=== PATIENT | male | born 1950 | race Asian ===

== ENCOUNTER 2024-03-31 12:14 | Inpatient (IN) | payer OTHER ==
[~2024-03-31] VITALS: Ht 162.6 cm; Wt 72.6 kg
[2024-03-31] MEDS ORDERED: DILTIAZEM HCL 25 MG IV ONE (13:07)
[2024-03-31] MEDS: IV NS 0.9% 1,000 ML BAG IV ONE (13:16)
[2024-03-31] MEDS: DILTIAZEM HCL 50 MG IV IV ONE (13:18)
[2024-03-31 13:32] LABS: BASOPHILS % (AUTO) 0.2 % (0.0-2.0); HEMATOCRIT 41 % (39-51); HEMOGLOBIN 13.6 g/dL (13.5-17.5); LYMPHOCYTES # (AUTO) 0.3 K/uL (0.8-4.8); MEAN CORPUSCULAR HGB CONC 33 g/dl (31.0-36.0); MONOCYTES # (AUTO) 0.4 K/uL (0.1-1.30); NEUTROPHILS # (AUTO) 4.1 K/uL (1.8-8.9); PLATELET COUNT (AUTO) 96 K/uL (150-450); WHITE BLOOD COUNT (AUTO) 4.8 K/uL (4.3-11.0)
[2024-03-31 13:37] LABS: EOSINOPHILS % (AUTO) 0.5 % (0.0-6.0); LYMPHOCYTES % (AUTO) 6.7 % (20.0-44.0); MEAN CORPUSCULAR HEMOGLOBIN 27 PG (26.0-33.0); MEAN CORPUSCULAR VOLUME 83 fL (80-96); MONOCYTES % (AUTO) 8.1 % (2.0-12.0); NEUTROPHILS % (AUTO) 84.5 % (43.0-81.0); RED BLOOD CELL COUNT(AUTO) 4.97 MIL/uL (4.5-6.0); RED CELL DISTRIBUTION WIDTH 15.2 % (11.5-15.0)
[2024-03-31 13:44] LABS: INR 1.16 (0.91-1.10); PARTIAL THROMBOPLASTIN TIME 39.3 SEC (24.3-34.3); PROTHROMBIN TIME 11.8 SECS (9.2-11.1)
[2024-03-31 13:46] LABS: ALANINE AMINOTRANSFERASE 150 U/L (12-78); ALBUMIN 2.7 g/dL (3.4-5.0); ALKALINE PHOSPHATASE 179 U/L (46-116); ASPARTATE AMINOTRANSFERASE 76 U/L (15-37); BILIRUBIN,DIRECT 3.6 mg/dL (0.0-0.2); BILIRUBIN,TOTAL 4.6 mg/dL (0.2-1.0); CALCIUM, SERUM 8.6 mg/dL (8.5-10.1); CARBON DIOXIDE 24 mmol/L (21-32); CHLORIDE 98 mmol/L (98-107); CREATININE 1.5 mg/dL (0.6-1.3); GLUCOSE 148 mg/dL (74-106); SODIUM SERUM 131 mmol/L (136-145); TOTAL PROTEIN, SERUM 7.4 g/dL (6.4-8.2); UREA NITROGEN, BLOOD 27 mg/dL (7-18)
[2024-03-31 13:47] LABS: APPEARANCE,URINE Slightly Cloudy (CLEAR); BILIRUBIN,URINE MODERATE (NEGATIVE); BLOOD, URINE Moderate Ery/uL (NEGATIVE); COLOR,URINE YELLOW (YELLOW); KETONES,URINE 40 mg/dL (NEGATIVE); LEUKOCYTE ESTERASE ,URINE Negative (NEGATIVE); NITRITE, URINE Negative (NEGATIVE); PROTEIN,URINE 100 mg/dl (NEGATIVE); UGLUCOSE >=1000 mg/dL (NEGATIVE); UROBILINOGEN,URINE 0.2 EU/dL (0.2)
[2024-03-31 13:49] LABS: LACTIC ACID 3.7 mmol/L (0.4-2.0)
[2024-03-31] MEDS: PIPERACILLIN /TAZOBACTAM 3.375 G in IV D5W 50 ML IV ONE (14:10)
[2024-03-31 14:12] LABS: ADD URINE CULTURE NO; BACTERIA,URINE Few /HPF (None Seen); COARSE GRANULAR CASTS,URINE Few /LPF (None Seen); SQUAMOUS EPITHELIAL CELL,UR Few /HPF (None Seen); URINE AMORPHOUS URATE Few /HPF (None Seen); WBC,URINE 0-2 /HPF (0-3)
[2024-03-31 14:13] LABS: FINE GRANULAR CASTS,URINE Few /LPF (None Seen)
[2024-03-31 16:23] LABS: BAND % (MANUAL) 3 % (0.0-5.0); LYMPHOCYTES % (MANUAL) 8 % (16-48); MONOCYTES % (MANUAL) 10 % (0-11.0); NEUTROPHILS % (MANUAL) 79 (42-76); PLATELET ESTIMATE DECREASED
[2024-03-31] MEDS: IV NS 0.9% 500 ML BAG IV ONE (16:32)
[2024-03-31] MEDS: DILTIAZEM HCL 25 MG IV IV ONE (17:15)
[2024-03-31] MEDS ORDERED: MAGNESIUM HYDROXIDE 30 ML UDC PO PRN (18:00)
[2024-03-31] MEDS ORDERED: ONDANSETRON HCL/PF 4 MG/2 ML VIAL IVP PRN (18:00)
[2024-03-31] MEDS ORDERED: MORPHINE SULFATE INJ 2 MG/ML DISP.SYRIN IV PRN (18:00)
[2024-03-31] MEDS ORDERED: MAG HYDROX/AL HYDROX/SIMETH 30 ML UDC PO PRN (18:00)
[2024-03-31] MEDS ORDERED: Z GUARD REMEDY 4 OZ OINT TP PRN (18:00)
[2024-03-31] MEDS: ACETAMINOPHEN 325 MG TABLET PO PRN (18:31)
[2024-03-31] MEDS: IV NS 0.9% 1,000 ML IV PRN (18:50)
[2024-03-31] MEDS ORDERED: ZOSYN IVPB 2.25 G in IV D5W 50ml IV SCH (20:00)
[2024-03-31] MEDS: DILTIAZEM HCL 25 MG IV IV PRN (23:35)
[2024-03-31] MEDS: ZOSYN IVPB 2.25 G in IV D5W 50ml IV SCH (23:40)
[2024-04-01] VITALS: BP 99/70; TEMP 98.4; O2SAT 97
[2024-04-01 04:00] VITALS: BP 137/88; TEMP 98.1; O2SAT 96
[2024-04-01 08:00] VITALS: BP 118/99; TEMP 98.4; O2SAT 100
[2024-04-01 09:28] LABS: BASOPHILS % (AUTO) 0.1 % (0.0-2.0); EOSINOPHILS % (AUTO) 0.3 % (0.0-6.0); HEMATOCRIT 38 % (39-51); HEMOGLOBIN 12.9 g/dL (13.5-17.5); LYMPHOCYTES # (AUTO) 0.4 K/uL (0.8-4.8); LYMPHOCYTES % (AUTO) 9.6 % (20.0-44.0); MEAN CORPUSCULAR HEMOGLOBIN 28 PG (26.0-33.0); MEAN CORPUSCULAR HGB CONC 34 g/dl (31.0-36.0); MEAN CORPUSCULAR VOLUME 83 fL (80-96); MONOCYTES # (AUTO) 0.4 K/uL (0.1-1.30); MONOCYTES % (AUTO) 11.5 % (2.0-12.0); NEUTROPHILS # (AUTO) 2.9 K/uL (1.8-8.9); NEUTROPHILS % (AUTO) 78.5 % (43.0-81.0); PLATELET COUNT (AUTO) 76 K/uL (150-450); RED BLOOD CELL COUNT(AUTO) 4.63 MIL/uL (4.5-6.0); RED CELL DISTRIBUTION WIDTH 15.5 % (11.5-15.0); WHITE BLOOD COUNT (AUTO) 3.7 K/uL (4.3-11.0)
[2024-04-01 10:00] LABS: BILIRUBIN,DIRECT 1.9 mg/dL (0.0-0.2); BILIRUBIN,TOTAL 2.5 mg/dL (0.2-1.0); CREATININE 0.9 mg/dL (0.6-1.3); MAGNESIUM 2.2 mg/dL (1.8-2.4); PHOSPHORUS 2.3 mg/dL (2.5-4.9); POTASSIUM 3.3 mmol/L (3.5-5.1); TOTAL PROTEIN, SERUM 6.3 g/dL (6.4-8.2)
[2024-04-01 12:00] VITALS: BP 127/67; TEMP 98.4; O2SAT 95
[2024-04-01 12:16] LABS: BAND % (MANUAL) 2 % (0.0-5.0); LYMPHOCYTES % (MANUAL) 9 % (16-48); MONOCYTES % (MANUAL) 11 % (0-11.0); NEUTROPHILS % (MANUAL) 78 (42-76); PLATELET ESTIMATE DECREASED
[2024-04-01 12:17] LABS: ANISOCYTOSIS 1+; TEAR DROP CELLS OCC
[2024-04-01] MEDS ORDERED: EMPA10TA PO (12:32)
[2024-04-01] MEDS ORDERED: RIVA10TA PO (12:32)
[2024-04-01] MEDS ORDERED: FLEC50TA2 PO (12:32)
[2024-04-01] MEDS ORDERED: LATA7.5D EACHEYE (12:32)
[2024-04-01] MEDS ORDERED: ATOR40TA PO (12:32)
[2024-04-01] MEDS ORDERED: METO50TA16 PO (12:32)
[2024-04-01] MEDS: POTASSIUM CHLORIDE 20 MEQ TAB.PRT.SR PO ONE (12:36)
[2024-04-01 12:55] LABS: APPEARANCE,URINE CLEAR (CLEAR); BILIRUBIN,URINE 1+ (NEGATIVE); BLOOD, URINE 1+ Ery/uL (NEGATIVE); COLOR,URINE YELLOW (YELLOW); KETONES,URINE 2+ mg/dL (NEGATIVE); LEUKOCYTE ESTERASE ,URINE NEGATIVE (NEGATIVE); NITRITE, URINE NEGATIVE (NEGATIVE); PH,URINE 5.5 (5.0-8.0); PROTEIN,URINE 1+ mg/dl (NEGATIVE); UGLUCOSE 3+ mg/dL (NEGATIVE); UROBILINOGEN,URINE 0.2 EU/dL (0.2)
[2024-04-01 13:04] LABS: CREATININE, URINE 48.3 MG/DL (30.0-125.0); URINE TOTAL PROTEIN 61.7 mg/dL (0-11.9)
[2024-04-01 13:06] LABS: ADD URINE CULTURE NO; BACTERIA,URINE Rare /HPF (None Seen); RBC,URINE 0-3 /HPF (0-2); SQUAMOUS EPITHELIAL CELL,UR Rare /HPF (None Seen); WBC,URINE 0-2 /HPF (0-3)
[2024-04-01 13:49] LABS: EOSINOPHIL,URINE None Seen
[2024-04-01] MEDS ORDERED: METOPROLOL TARTRATE 50 MG TABLET PO SCH (14:00)
[2024-04-01] MEDS: RIVAROXABAN 10 MG TABLET PO SCH (14:31)
[2024-04-01] MEDS: METOPROLOL TARTRATE 50 MG TABLET PO SCH (14:33)
[2024-04-01] MEDS: ATORVASTATIN 40 MG TABLET PO SCH (14:51)
[2024-04-01] MEDS ORDERED: DIGOXIN INJ 0.5 MG/2 ML AMPUL IV ONE (15:00)
[2024-04-01 16:00] VITALS: BP 123/79; TEMP 97.9; O2SAT 96
[2024-04-01] MEDS ORDERED: DEXTROSE 50%-WATER 50 ML DISP.SYRIN IV PRN (16:00)
[2024-04-01] MEDS: K PHOS NEUTRAL 250 MG TABLET PO ONE (16:03)
[2024-04-01] MEDS: BLOOD SUGAR DIAGNOSTIC 1 EACH STRIP IN SCH (16:31)
[2024-04-01] MEDS ORDERED: FLECAINIDE ACETATE (100 MG) 100 MG TABLET PO SCH (17:00)
[2024-04-01] MEDS: INSULIN REGULAR, HUMAN 100 UNIT/ML 3 ML VIAL SQ PRN (17:20)
[2024-04-01 19:52] LABS: THYROID STIMULATING HORMONE 0.517 uIU/mL (0.358-3.74)
[2024-04-01 20:00] VITALS: BP 106/84; TEMP 98.2; O2SAT 97
[2024-04-01] MEDS: LATANOPROST EYE DROP 0.005% 2.5 ML BOTTLE EACHEYE SCH (21:19)
[2024-04-02] VITALS: BP 112/78; TEMP 97.9; O2SAT 96
[2024-04-02 04:00] VITALS: BP 106/86; TEMP 98; O2SAT 95
[2024-04-02 07:16] LABS: BASOPHILS % (AUTO) 0.2 % (0.0-2.0); EOSINOPHILS % (AUTO) 0.9 % (0.0-6.0); HEMATOCRIT 39 % (39-51); LYMPHOCYTES # (AUTO) 0.9 K/uL (0.8-4.8); LYMPHOCYTES % (AUTO) 21.2 % (20.0-44.0); MEAN CORPUSCULAR HEMOGLOBIN 28 PG (26.0-33.0); MEAN CORPUSCULAR HGB CONC 34 g/dl (31.0-36.0); MEAN CORPUSCULAR VOLUME 82 fL (80-96); MONOCYTES # (AUTO) 0.7 K/uL (0.1-1.30); MONOCYTES % (AUTO) 17.1 % (2.0-12.0); NEUTROPHILS # (AUTO) 2.4 K/uL (1.8-8.9); NEUTROPHILS % (AUTO) 60.6 % (43.0-81.0); PLATELET COUNT (AUTO) 84 K/uL (150-450); RED BLOOD CELL COUNT(AUTO) 4.72 MIL/uL (4.5-6.0); RED CELL DISTRIBUTION WIDTH 15.5 % (11.5-15.0)
[2024-04-02 08:00] VITALS: BP 113/82; TEMP 98.2; O2SAT 96
[2024-04-02] MEDS: HOME MED MISC JARDIANCE 10MG PO SCH (08:15)
[2024-04-02] MEDS: METOPROLOL TARTRATE 50 MG TABLET PO SCH (08:15)
[2024-04-02 08:41] LABS: BILIRUBIN,DIRECT 1.1 mg/dL (0.0-0.2); BILIRUBIN,TOTAL 1.6 mg/dL (0.2-1.0); CALCIUM, SERUM 8.3 mg/dL (8.5-10.1); CREATININE 0.9 mg/dL (0.6-1.3); PHOSPHORUS 2.4 mg/dL (2.5-4.9); POTASSIUM 3.2 mmol/L (3.5-5.1); TOTAL PROTEIN, SERUM 6.1 g/dL (6.4-8.2)
[2024-04-02 09:39] LABS: THYROID STIMULATING HORMONE 1.359 uIU/mL (0.358-3.74)
[2024-04-02 10:36] LABS: ANISOCYTOSIS 1+; BAND % (MANUAL) 4 % (0.0-5.0); EOSINOPHILS % (MANUAL) 1 % (0-4); HYPOCHROMASIA 1+; LYMPHOCYTES % (MANUAL) 20 % (16-48); MONOCYTES % (MANUAL) 18 % (0-11.0); NEUTROPHILS % (MANUAL) 57 (42-76); PLATELET ESTIMATE DECREASED; TEAR DROP CELLS 1+
[2024-04-02] MEDS: POTASSIUM CL. PREMIX PERIPHER. 50 ML IV SCH (11:00)
[2024-04-02] MEDS: ZOSYN IVPB 3.375 G in IV D5W 50ml IV SCH (11:09)
[2024-04-02 11:41] LABS: URIC ACID 2.1 mg/dL (2.6-7.2)
[2024-04-02 12:00] VITALS: BP 124/87; TEMP 97.7
[2024-04-02 16:00] VITALS: BP 114/83; TEMP 98.1
[2024-04-02] MEDS: K PHOS NEUTRAL 250 MG TABLET PO ONE (16:16)
[2024-04-02] MEDS: POTASSIUM CHLORIDE 10 MEQ TABLET.SA PO ONE (16:17)
[2024-04-02 20:00] VITALS: BP 110/78; TEMP 97.7; O2SAT 98
[2024-04-03] VITALS: BP 94/67; TEMP 97.3; O2SAT 98
[2024-04-03 04:00] VITALS: BP 111/77; TEMP 98; O2SAT 98
[2024-04-03 06:40] LABS: BASOPHILS % (AUTO) 0.3 % (0.0-2.0); EOSINOPHILS # (AUTO) 0.1 K/uL (0.0-0.7); HEMATOCRIT 41 % (39-51); HEMOGLOBIN 13.8 g/dL (13.5-17.5); LYMPHOCYTES # (AUTO) 1.9 K/uL (0.8-4.8); LYMPHOCYTES % (AUTO) 27.9 % (20.0-44.0); MEAN CORPUSCULAR HEMOGLOBIN 28 PG (26.0-33.0); MEAN CORPUSCULAR HGB CONC 34 g/dl (31.0-36.0); MEAN CORPUSCULAR VOLUME 83 fL (80-96); MONOCYTES # (AUTO) 0.9 K/uL (0.1-1.30); MONOCYTES % (AUTO) 13.4 % (2.0-12.0); NEUTROPHILS # (AUTO) 3.8 K/uL (1.8-8.9); NEUTROPHILS % (AUTO) 56.4 % (43.0-81.0); PLATELET COUNT (AUTO) 134 K/uL (150-450); RED BLOOD CELL COUNT(AUTO) 4.92 MIL/uL (4.5-6.0); RED CELL DISTRIBUTION WIDTH 15.5 % (11.5-15.0); WHITE BLOOD COUNT (AUTO) 6.8 K/uL (4.3-11.0)
[2024-04-03 06:57] LABS: BILIRUBIN,DIRECT 0.9 mg/dL (0.0-0.2); BILIRUBIN,TOTAL 1.3 mg/dL (0.2-1.0); CALCIUM, SERUM 8.4 mg/dL (8.5-10.1); CREATININE 0.9 mg/dL (0.6-1.3); PHOSPHORUS 3.2 mg/dL (2.5-4.9); POTASSIUM 3.4 mmol/L (3.5-5.1); TOTAL PROTEIN, SERUM 6.7 g/dL (6.4-8.2)
[2024-04-03 08:00] VITALS: BP 116/72; TEMP 97.5; O2SAT 98
[2024-04-03] MEDS: POTASSIUM CHLORIDE 20 MEQ TAB.PRT.SR PO SCH (11:45)
[2024-04-03 12:00] VITALS: BP 116/72; TEMP 97.9; O2SAT 98
[2024-04-03 16:00] VITALS: BP 120/81; TEMP 97.5; O2SAT 98
[2024-04-03 20:00] VITALS: BP 105/78; TEMP 97.5; O2SAT 98
[2024-04-04] VITALS: BP 99/67; TEMP 97.9; O2SAT 99
[2024-04-04 01:06] LABS: PTH, INTACT 28 pg/mL (15-65)
[2024-04-04 03:09] LABS: HBSAG SCREEN Negative (Negative); HEPATITIS A AB, IgM Negative (Negative); HEPATITIS B CORE AB, IgM Negative (Negative)
[2024-04-04 04:00] VITALS: BP 99/48; TEMP 97.9; O2SAT 98
[2024-04-04 06:41] LABS: BASOPHILS % (AUTO) 0.5 % (0.0-2.0); EOSINOPHILS # (AUTO) 0.1 K/uL (0.0-0.7); EOSINOPHILS % (AUTO) 1.6 % (0.0-6.0); HEMATOCRIT 32 % (39-51); HEMOGLOBIN 10.9 g/dL (13.5-17.5); LYMPHOCYTES # (AUTO) 2.4 K/uL (0.8-4.8); LYMPHOCYTES % (AUTO) 29.9 % (20.0-44.0); MEAN CORPUSCULAR HEMOGLOBIN 28 PG (26.0-33.0); MEAN CORPUSCULAR HGB CONC 34 g/dl (31.0-36.0); MEAN CORPUSCULAR VOLUME 82 fL (80-96); MONOCYTES # (AUTO) 1.1 K/uL (0.1-1.30); MONOCYTES % (AUTO) 12.8 % (2.0-12.0); NEUTROPHILS # (AUTO) 4.5 K/uL (1.8-8.9); NEUTROPHILS % (AUTO) 55.2 % (43.0-81.0); PLATELET COUNT (AUTO) 173 K/uL (150-450); RED BLOOD CELL COUNT(AUTO) 3.91 MIL/uL (4.5-6.0); RED CELL DISTRIBUTION WIDTH 14.9 % (11.5-15.0); WHITE BLOOD COUNT (AUTO) 8.2 K/uL (4.3-11.0)
[2024-04-04 07:09] LABS: ALBUMIN 1.9 g/dL (3.4-5.0); BILIRUBIN,DIRECT 0.7 mg/dL (0.0-0.2); BILIRUBIN,TOTAL 1.1 mg/dL (0.2-1.0); CALCIUM, SERUM 8.2 mg/dL (8.5-10.1); CREATININE 0.7 mg/dL (0.6-1.3); POTASSIUM 3.7 mmol/L (3.5-5.1); TOTAL PROTEIN, SERUM 5.8 g/dL (6.4-8.2)
[2024-04-04 08:49] VITALS: BP 113/75; TEMP 97.6; O2SAT 99
[2024-04-04] MEDS ORDERED: APIXABAN 5 MG TABLET PO SCH (09:30)
[2024-04-04 12:00] VITALS: BP 100/73; TEMP 97.8; O2SAT 99
[2024-04-04 12:08] LABS: *SPE A/G RATIO 0.8 (0.7-1.7); *SPE ALBUMIN 2.4 g/dL (2.9-4.4); *SPE ALPHA-1-GLOBULIN 0.4 g/dL (0.0-0.4); *SPE ALPHA-2-GLOBULIN 0.9 g/dL (0.4-1.0); *SPE BETA GLOBULIN 0.7 g/dL (0.7-1.3); *SPE GLOBULIN, TOTAL 2.9 g/dL (2.2-3.9); *SPE M-SPIKE Not Observed g/dL (Not Observed); *SPE PROTEIN TOTAL 5.3 g/dL (6.0-8.5); *SPEGAMMA GLOBULIN 0.9 g/dL (0.4-1.8)
[2024-04-04 16:00] VITALS: BP 93/63; TEMP 98; O2SAT 100
[2024-04-04 20:00] VITALS: BP 101/74; TEMP 97.9; O2SAT 99
[2024-04-05] VITALS: BP 94/68; TEMP 97.9; O2SAT 99
[2024-04-05 04:00] VITALS: BP 107/94; TEMP 97.7; O2SAT 100
[2024-04-05 06:24] LABS: BASOPHILS % (AUTO) 0.3 % (0.0-2.0); EOSINOPHILS # (AUTO) 0.2 K/uL (0.0-0.7); EOSINOPHILS % (AUTO) 1.5 % (0.0-6.0); HEMATOCRIT 28 % (39-51); HEMOGLOBIN 9.5 g/dL (13.5-17.5); LYMPHOCYTES # (AUTO) 3.2 K/uL (0.8-4.8); LYMPHOCYTES % (AUTO) 30.5 % (20.0-44.0); MEAN CORPUSCULAR HEMOGLOBIN 28 PG (26.0-33.0); MEAN CORPUSCULAR HGB CONC 34 g/dl (31.0-36.0); MEAN CORPUSCULAR VOLUME 83 fL (80-96); MONOCYTES # (AUTO) 0.9 K/uL (0.1-1.30); MONOCYTES % (AUTO) 8.3 % (2.0-12.0); NEUTROPHILS # (AUTO) 6.2 K/uL (1.8-8.9); NEUTROPHILS % (AUTO) 59.4 % (43.0-81.0); PLATELET COUNT (AUTO) 235 K/uL (150-450); RED BLOOD CELL COUNT(AUTO) 3.41 MIL/uL (4.5-6.0); RED CELL DISTRIBUTION WIDTH 15.5 % (11.5-15.0); WHITE BLOOD COUNT (AUTO) 10.4 K/uL (4.3-11.0)
[2024-04-05 06:43] LABS: CALCIUM, SERUM 8.1 mg/dL (8.5-10.1); CREATININE 0.8 mg/dL (0.6-1.3); MAGNESIUM 2.2 mg/dL (1.8-2.4); PHOSPHORUS 3.2 mg/dL (2.5-4.9); POTASSIUM 3.9 mmol/L (3.5-5.1)
[2024-04-05 08:00] VITALS: BP 102/64; TEMP 98.2; O2SAT 99
[2024-04-05] MEDS: METOPROLOL TARTRATE 50 MG TABLET PO ONE (08:57)
[2024-04-05 12:00] VITALS: BP 95/60; TEMP 98; O2SAT 100
[2024-04-05] MEDS: DIGOXIN INJ 0.5 MG/2 ML AMPUL IV SCH (12:30)
[2024-04-05 16:00] VITALS: BP 102/66; TEMP 98.2; O2SAT 100
[2024-04-05] MEDS: METOPROLOL TARTRATE 50 MG TABLET PO SCH (16:34)
[2024-04-05 20:00] VITALS: BP 101/66; TEMP 98.2; O2SAT 97
[2024-04-06] VITALS: BP 97/65; TEMP 97.7; O2SAT 100
[2024-04-06 04:00] VITALS: BP 104/67; TEMP 97.5; O2SAT 99
[2024-04-06 06:59] LABS: BASOPHILS % (AUTO) 0.4 % (0.0-2.0); EOSINOPHILS # (AUTO) 0.1 K/uL (0.0-0.7); EOSINOPHILS % (AUTO) 1.2 % (0.0-6.0); HEMATOCRIT 25 % (39-51); HEMOGLOBIN 8.4 g/dL (13.5-17.5); LYMPHOCYTES % (AUTO) 26.8 % (20.0-44.0); MEAN CORPUSCULAR HEMOGLOBIN 28 PG (26.0-33.0); MEAN CORPUSCULAR HGB CONC 33 g/dl (31.0-36.0); MEAN CORPUSCULAR VOLUME 84 fL (80-96); MONOCYTES # (AUTO) 0.7 K/uL (0.1-1.30); MONOCYTES % (AUTO) 6.3 % (2.0-12.0); NEUTROPHILS # (AUTO) 7.4 K/uL (1.8-8.9); NEUTROPHILS % (AUTO) 65.3 % (43.0-81.0); PLATELET COUNT (AUTO) 279 K/uL (150-450); RED BLOOD CELL COUNT(AUTO) 3.03 MIL/uL (4.5-6.0); WHITE BLOOD COUNT (AUTO) 11.3 K/uL (4.3-11.0)
[2024-04-06 07:42] LABS: ALANINE AMINOTRANSFERASE 61 U/L (12-78); ALKALINE PHOSPHATASE 103 U/L (46-116); ASPARTATE AMINOTRANSFERASE 42 U/L (15-37); BILIRUBIN,TOTAL 0.9 mg/dL (0.2-1.0); CALCIUM, SERUM 8.3 mg/dL (8.5-10.1); CARBON DIOXIDE 20 mmol/L (21-32); CHLORIDE 106 mmol/L (98-107); CREATININE 0.9 mg/dL (0.6-1.3); GLUCOSE 129 mg/dL (74-106); MAGNESIUM 2.3 mg/dL (1.8-2.4); PHOSPHORUS 3.1 mg/dL (2.5-4.9); SODIUM SERUM 138 mmol/L (136-145); TOTAL PROTEIN, SERUM 5.9 g/dL (6.4-8.2); UREA NITROGEN, BLOOD 20 mg/dL (7-18)
[2024-04-06 07:44] LABS: LIPASE > 375 U/L (16-77)
[2024-04-06 08:00] VITALS: BP 92/64; TEMP 97.7; O2SAT 94
[2024-04-06] MEDS: DIGOXIN 0.25 MG TABLET PO SCH (09:36)
[2024-04-06] MEDS ORDERED: METO50TA16 PO (10:54)
[2024-04-06] MEDS ORDERED: DIGO250T PO (10:54)
[2024-04-06 12:00] VITALS: BP 102/72; TEMP 97.7; O2SAT 95
== END 2024-04-06 13:20 | disposition home or self-care (01) | DRG 444 ==
LOC: ER 12:15 → TELE1 16:46 → MEDSG1 04-04 16:24 → TELE1 04-04 16:54
PROVIDERS: ADMIT Internal Medicine; ATTEND Nurse Practitioner Acute Care
DX: K80.45 Calculus of bile duct with chronic cholecystitis with obstruction (principal); E43 Unspecified severe protein-calorie malnutrition; N17.0 Acute kidney failure with tubular necrosis; E87.1 Hypo-osmolality and hyponatremia; E87.20 Acidosis, unspecified; D68.59 Other primary thrombophilia; D61.818 Other pancytopenia; J98.11 Atelectasis; K82.8 Other specified diseases of gallbladder; R74.01 Elevation of levels of liver transaminase levels; E80.6 Other disorders of bilirubin metabolism; Z86.79 Personal history of other diseases of the circulatory system; R19.7 Diarrhea, unspecified; E87.6 Hypokalemia; E88.09 Other disorders of plasma-protein metabolism, not elsewhere classified; E86.9 Volume depletion, unspecified; I48.91 Unspecified atrial fibrillation; Z79.84 Long term (current) use of oral hypoglycemic drugs; Z79.01 Long term (current) use of anticoagulants; Z79.899 Other long term (current) drug therapy; N13.9 Obstructive and reflux uropathy, unspecified; E11.9 Type 2 diabetes mellitus without complications; E83.51 Hypocalcemia; E86.1 Hypovolemia; I10 Essential (primary) hypertension
CPT/HCPCS: 36415; 71045-TC; 74018; 76700-TC; 78226; 80048-TC; 80053-TC; 80061-TC; 80076-TC; 81001; 82140-TC; 82550-TC; 82570-TC; 82728-TC; 82962-TC; 83540-TC; 83605-TC; 83690-TC; 83735-TC; 83935-TC; 83970; 84100-TC; 84155; 84165; 84300-TC; 84439-TC; 84443-TC; 84484-TC; 84550-TC; 85025-TC; 85730-TC; 87040-TC; 87086-TC; 93307-TC; A4223; A9537; G0378; J1160; J1815; J2543; J3480; J3490; J7030; J7050; J7060